=== PATIENT | male | born 1950 | race American Indian/Alaskan Native ===

== ENCOUNTER 2018-05-28 10:05 | Outpatient (CLI) | payer MEDICARE, OTHER ==
--- NOTE | 2018-05-28 11:01 | XRay Report ---
XRAY RIGHT SHOULDER THREE VIEWS: 05/28/18 10:05:00 CLINICAL: Pain. FINDINGS: Normal glenohumeral joint and normal AC joint. No fracture or dislocation. No bone lesion. Normal soft tissues. IMPRESSION: Normal right shoulder
--- NOTE | 2018-05-28 11:07 | XRay Report ---
XRAY CERVICAL SPINE WITH OBLIQUES FIVE VIEWS: 05/28/18 10:05:00 CLINICAL: Neck pain. FINDINGS: Exaggerated cervical lordosis on all views but normal alignment through T1. Decreased height of the C3, C4, C5 and C6 vertebral bodies which is likely a degenerative phenomenon. Disc space narrowing and large anterior osteophytes at C5-6 and C6-7. Anterior osteophytes at C3-4 and C4-5 with preserved disc spaces. No left-sided neural foraminal stenosis. The right-sided neural foramina are not well demonstrated. Mild multilevel facet joint disease. No fracture or subluxation. Normal odontoid and C1. Normal soft tissues and airway. IMPRESSION: Moderate degenerative disc disease, more severe at C5-6 and C6-7. No left-sided neural foraminal narrowing. The right neural foramina are not well demonstrated.
== END 2018-05-28 10:06 | disposition home or self-care (01) ==
LOC: SPVIMAG 10:05
PROVIDERS: ATTEND Family Medicine Adult Medicine
DX: M47.892 Other spondylosis, cervical region (principal); M25.511 Pain in right shoulder
CPT/HCPCS: 72050

== ENCOUNTER 2020-09-14 10:20 | Outpatient (CLI) | payer MEDICARE, OTHER ==
--- NOTE | 2020-09-14 13:21 | XRay Report ---
LUMBOSACRAL SPINE 5 VIEWS INDICATION: LOWER BACK PAIN. COMPARISON: None. IMPRESSION: Normal alignment. Moderate to severe degenerative disc disease is identified at T12-L1, L4-5 and L5-S1. There is moderate facet arthropathy at L3-4, L4-5 and L5-S1. Mild bilateral neural f oraminal narrowing is suspected at L4-5. No pars defect. No acute osseous or soft tissue abnormality. LEFT TIBIA AND FIBULA 2 VIEWS INDICATION: Left leg pain. COMPARISON: None. IMPRESSION: No acute osseous or soft tissue abnormality. No significant DJD. Signer Name: William Underwood Jr, MD Signed: 09/14/2020 1:17 PM Workstation Name: [id number]
== END 2020-09-14 10:21 | disposition home or self-care (01) ==
LOC: XRAY 10:20
PROVIDERS: ATTEND Family Medicine Adult Medicine
DX: M47.817 Spondylosis without myelopathy or radiculopathy, lumbosacral region (principal); M51.37 Other intervertebral disc degeneration, lumbosacral region; M48.07 Spinal stenosis, lumbosacral region
CPT/HCPCS: 72110

== ENCOUNTER 2020-09-15 09:06 | Outpatient (CLI) | payer MEDICARE, OTHER ==
--- NOTE | 2020-09-15 11:33 | Vascular Lab Report ---
DUPLEX DOPPLER LOWER EXTREMITY VEINS, LEFT INDICATION / CLINICAL INFORMATION: LT LEG PAIN. TECHNIQUE: Duplex doppler imaging was performed through the veins of the left lower extremity using venous compr ession and other maneuvers. COMPARISON: None available. FINDINGS: LEFT COMMON FEMORAL VEIN: Negative. LEFT FEMORAL VEIN: Negative. LEFT POPLITEAL VEIN: Negative. LEFT CALF VEINS: Negative. ADDITIONAL FINDINGS: None. IMPRESSION: 1. No sonographic evidence for DVT in the left lower extremity. Signer Name: Brayan Maxwell MD FACPonce Signed: 09/15/2020 11:32 AM Workstation Name: [email or web address]
== END 2020-09-15 09:07 | disposition home or self-care (01) ==
LOC: VAS 09:06
PROVIDERS: ATTEND Family Medicine Adult Medicine
DX: M79.662 Pain in left lower leg (principal); M54.5 Low back pain